=== PATIENT | male | born 1955 | race African-American/Black ===

== ENCOUNTER 2021-01-27 09:18 | Outpatient (CLI) | payer MEDICARE, MEDICAID ==
[2021-01-27] MEDS ORDERED: Iopamidol 370 76% 100 ML VIAL ONE (16:20)
== END 2021-01-27 09:19 | disposition home or self-care (01) ==
LOC: CT 09:18
PROVIDERS: ATTEND Internal Medicine Medical Oncology
DX: C22.8 Malignant neoplasm of liver, primary, unspecified as to type (principal); R16.0 Hepatomegaly, not elsewhere classified; K59.00 Constipation, unspecified; I25.10 Atherosclerotic heart disease of native coronary artery without angina pectoris; K86.89 Other specified diseases of pancreas
CPT/HCPCS: 71260; 74177; Q9967